=== PATIENT | male | born 1985 | race Caucasian/White ===

== ENCOUNTER 2022-06-06 18:30 | Observation (INO) | payer OTHER ==
[2022-06-06] MEDS ORDERED: Magnesium Replacement Protocol 1 EACH MISC MISCELLANE PRN (18:54)
[2022-06-06] MEDS ORDERED: INSULIN REGULAR BOLUS (FROM DRIP BAG) IV ONE (18:54)
[2022-06-06] MEDS ORDERED: SODIUM CHLORIDE 0.9% 1,000 ML IV ONE ×2 (18:54→21:02)
[2022-06-06] MEDS ORDERED: Potassium Replacement Protocol 1 EACH MISC MISCELLANE PRN (18:54)
[2022-06-06] MEDS ORDERED: LORazepam 2 MG/ML INJ IV STA (19:15)
[2022-06-06 19:28] LABS: Glucose,Whole Blood >600 mg/dL (70-110)
--- NOTE | 2022-06-06 19:31 | ED ---
General Adult HPI - General Chief complaint: Altered Mental Status Stated complaint: hyperglycemia Time Seen by Provider: 06/06/22 18:32 Source: patient, RN notes reviewed, old records reviewed Mode of arrival: EMS - History of Present Illness Initial comments: This is a 36-year-old male presents emergency department stating that his sugar is over 550. Patient states the type I insulin diabetic and he wants to get some insulin. Patient is very slow to answer questions. Sometimes when you ask him a question he just repeats his sugars high over and over again and doesn't a nswer questions. Patient seems somewhat agitated and when I asked him how he knew his sugar was high he told me not to make a mad and he clenched his fists. And eventually patient gets upset and wants to leave but spit and normal smile of tobacco into the urinal and then started crying and was wandering all over the ER stating that he wanted his water and he was holding his water in his hands. Patient is acting very bizarre and at this point in time I don't feel like he can make his own decisions. - Related Data Allergies Allergy/AdvReac Type Severity Reaction Status Date / Time No Known Allergies Allergy Verified 06/06/22 18:48 Review of Systems ROS Statement: Those systems with pertinent positive or pertinent negative responses have been documented in the HPI. ROS Other: All systems not noted in ROS Statement are negative. Past Medical History Past Medical History: Diabetes Mellitus History of Any Multi-Drug Resistant Organisms: None Reported Past Surgical History: No Surgical Hx Reported Past Psychological History: PTSD Smoking Status: Current some day smoker Past Alcohol Use History: Heavy Past Drug Use History: None Reported General Exam - General Exam Comments Initial Comments: GENERAL: Patient is well-developed and well-nourished. Patient is nontoxic and well- hydrated and is in no acute distress. ENT: Neck is soft and supple. No significant lymphadenopathy is noted. Oropharynx is clear. Moist mucous membranes. Neck has full range of motion without eliciting any pain. There is no thyroid enlargement and no masses were felt. EYES: The sclera were anicteric and conjunctiva were pink and moist. Extraocular movements were intact and pupils were equal round and reactive to light. Ey elids were unremarkable. PULMONARY: Unlabored respirations. Good breath sounds bilaterally. No audible rales rhonchi or wheezing was noted. CARDIOVASCULAR: There is a regular rate and rhythm without any murmurs gallops or rubs. Femoral pulses are equal bilaterally ABDOMEN: Soft and nontender with normal bowel sounds. No palpable organomegaly was noted. There is no palpable pulsatile mass. SKIN: Skin is clear with no lesions or rashes and otherwise unremarkable. NEUROLOGIC: Patient is alert and oriented 2. Cranial nerves II through XII are grossly intact. Motor and sensory are also intact. Normal speech, volume and content. Symmetrical smile. Cerebellar exam grossly intact. MUSCULOSKELETAL: Normal extremities with adequate strength and full range of motion. No lower extremity swelling or edema. No calf tenderness. LYMPHATICS: No significant lymphadenopathy is noted PSYCHIATRIC: Patient is acting very bizarre not answering all questions. Patient is getting agitated and clenching his fists patient is breaking out and crying because he can't find his water even though he is holding it. Patient is not competent to make his own decisions at this point. Course Vital Signs 06/06/22 06/06/22 18:41 20:56 Temperature 98.5 F 98.5 F Pulse Rate 111 H 97 Respiratory 20 20 Rate Blood Pressure 126/81 112/52 O2 Sat by Pulse 95 98 Oximetry Medical Decision Making - Medical Decision Making I filled out a clinical certain after the nurse petitioned for the patient to be held. EKG shows sinus tachycardia 108 bpm DC interval is 176 QRS is 190 QT interval 398 QTC is 462. Patient's EKG shows no ST segment elevation or depression. Patient was put on an insulin drip after he received an insulin bolus. Also he received a bolus of normal saline. Patient will be admitted I spoke with sounds physician's Dr. Sinclair he agreed to admit the patient I wrote admitting orders. - Lab Data Result diagrams: 06/06/22 19:06/06/22 19:23 Lab Results 06/06/22 06/06/22 06/06/22 Range/Units 19:23 19: 19: WBC 7.6 (3.8-10.6) k/uL RBC 4.93 (4.30-5.90) m/uL Hgb 14.7 (13.0-17.5) gm/dL Hct 44.3 (39.0-53.0) % MCV 90.0 (80.0-100.0) fL MCH 29.8 (25.0-35.0) pg MCHC 33.2 (31.0-37.0) g/dL RDW 11.9 (11.5-15.5) % Plt Count 302 (150-450) k/uL MPV 8.2 Neutrophils % 56 % Lymphocytes % 32 % Monocytes % 4 % Eosinophils % 5 % Basophils % 1 % Neutrophils # 4.3 (1.3-7.7) k/uL Lymphocytes # 2.4 (1.0-4.8) k/uL Monocytes # 0.3 (0-1.0) k/uL Eosinophils # 0.4 (0-0.7) k/uL Basophils # 0.1 (0-0.2) k/uL Sodium 134 L (137-145) mmol/L Potassium 5.7 H (3.5-5.1) mmol/L Chloride 95 L (98-107) mmol/L Carbon Dioxide 15 L (22-30) mmol/L Anion Gap 24 mmol/L BUN 11 (9-20) mg/dL Creatinine 0.84 (0.66-1.25) mg/dL Est GFR (CKD-EPI)AfAm >90 (>60 ml/min/1.73 sqM) Est GFR (CKD-EPI)NonAf >90 (>60 ml/min/1.73 sqM) Glucose 705 H* (74-99) mg/dL POC Glucose (mg/dL) (70-110) mg/dL POC Glu Dumpling Machine Operator ID Phosphorus 4.3 (2.5-4.5) mg/dL Acetone, Qual Negative (Negative) 06/06/22 Range/Units 19:26 WBC (3.8-10.6) k/uL RBC (4.30-5.90) m/uL Hgb (13.0-17.5) gm/dL Hct (39.0-53.0) % MCV (80.0-100.0) fL MCH (25.0-35.0) pg MCHC (31.0-37.0) g/dL RDW (11.5-15.5) % Plt Count (150-450) k/uL MPV Neutrophils % % Lymphocytes % % Monocytes % % Eosinophils % % Basophils % % Neutrophils # (1.3-7.7) k/uL Lymphocytes # (1.0-4.8) k/uL Monocytes # (0-1.0) k/uL Eosinophils # (0-0.7) k/uL Basophils # (0-0.2) k/uL Sodium (137-145) mmol/L Potassium (3.5-5.1) mmol/L Chloride (98-107) mmol/L Carbon Dioxide (22-30) mmol/L Anion Gap mmol/L BUN (9-20) mg/dL Creatinine (0.66-1.25) mg/dL Est GFR (CKD-EPI)AfAm (>60 ml/min/1.73 sqM) Est GFR (CKD-EPI)NonAf (>60 ml/min/1.73 sqM) Glucose (74-99) mg/dL POC Glucose (mg/dL) >600 H (70-110) mg/dL POC Glu Dumpling Machine Operator ID Yakov De Los Santos Phosphorus (2.5-4.5) mg/dL Acetone, Qual (Negative) Disposition Clinical Impression: Acute psychosis, Hyperglycemia Disposition: ADMITTED IP TO THIS HOSP Referrals: None,Stated [Primary Care Provider] - 1-2 days Time of Disposition: 21:01
[2022-06-06 19:35] LABS: Basophils # (A) 0.1 k/uL (0-0.2); Basophils % (A) 1 %; Eosinophils # (A) 0.4 k/uL (0-0.7); Eosinophils % (A) 5 %; HCT 44.3 % (39.0-53.0); HGB 14.7 gm/dL (13.0-17.5); Lymphocytes # (A) 2.4 k/uL (1.0-4.8); Lymphocytes % (A) 32 %; MCH 29.8 pg (25.0-35.0); MCHC 33.2 g/dL (31.0-37.0); Mean Platelet Volume 8.2; Monocytes # (A) 0.3 k/uL (0-1.0); Monocytes % (A) 4 %; Neutrophils # (A) 4.3 k/uL (1.3-7.7); Neutrophils % (A) 56 %; Platelet Count 302 k/uL (150-450); RBC 4.93 m/uL (4.30-5.90); RDW 11.9 % (11.5-15.5); WBC 7.6 k/uL (3.8-10.6)
[2022-06-06] MEDS: INSULIN REGULAR 100 UNIT in SODIUM CHLORIDE 0.9% 100 ML IV SCH (19:43)
[2022-06-06 19:55] LABS: African American GFR (CKD) >90 (>60 ml/min/1.73 sqM); Anion Gap 24 mmol/L; Blood Urea Nitrogen 11 mg/dL (9-20); Carbon Dioxide 15 mmol/L (22-30); Chloride 95 mmol/L (98-107); Non-African American GFR(CKD) >90 (>60 ml/min/1.73 sqM); Sodium 134 mmol/L (137-145)
[2022-06-06 20:05] LABS: Potassium 5.7 mmol/L (3.5-5.1)
[2022-06-06 20:06] LABS: Glucose 705 mg/dL (74-99)
[2022-06-06] MEDS ORDERED: ZIPRASIDONE 20 MG VIAL IM STA (20:07)
[2022-06-06] MEDS: SODIUM CHLORIDE 0.9% 1,000 ML IV SCH (22:05)
[2022-06-06 22:13] LABS: VBG PH 7.32 (7.31-7.41)
[2022-06-06 22:16] LABS: African American GFR (CKD) >90 (>60 ml/min/1.73 sqM); Anion Gap 18 mmol/L; Blood Urea Nitrogen 11 mg/dL (9-20); Carbon Dioxide 19 mmol/L (22-30); Chloride 102 mmol/L (98-107); Glucose 415 mg/dL (74-99); Non-African American GFR(CKD) >90 (>60 ml/min/1.73 sqM); Potassium 3.6 mmol/L (3.5-5.1); Sodium 139 mmol/L (137-145)
[2022-06-06 22:16] LABS: Glucose,Whole Blood 360 mg/dL (70-110)
[2022-06-06 23:27] LABS: Glucose,Whole Blood 175 mg/dL (70-110)
[2022-06-07 00:36] LABS: Glucose,Whole Blood 168 mg/dL (70-110)
[2022-06-07] MEDS: SODIUM CHLORIDE 0.9% 1,000 ML IV SCH (00:51)
[2022-06-07 01:09] LABS: African American GFR (CKD) >90 (>60 ml/min/1.73 sqM); Anion Gap 17 mmol/L; Blood Urea Nitrogen 11 mg/dL (9-20); Carbon Dioxide 20 mmol/L (22-30); Chloride 105 mmol/L (98-107); Glucose 157 mg/dL (74-99); Non-African American GFR(CKD) >90 (>60 ml/min/1.73 sqM); Potassium 3.6 mmol/L (3.5-5.1); Sodium 142 mmol/L (137-145)
[2022-06-07] MEDS: D5-0.45% NACL WITH KCL 20MEQ/L 1,000 ML IV SCH ×2 (01:32→08:40)
[2022-06-07 01:35] LABS: Glucose,Whole Blood 167 mg/dL (70-110)
[2022-06-07 02:36] LABS: Glucose,Whole Blood 207 mg/dL (70-110)
--- NOTE | 2022-06-07 02:56 | P.HPIM ---
History of Present Illness H&P Date: 06/06/22 Chief Complaint: bizarre behavior 36 year old male with history of DM . I was warned that patient is edgy, earlier int ED , he came in requesting some insulin as his sugar in high, and then he started acting in a bizarre way , violent and threatening, for which he was petitioned and given geodon to help control his behavior. at the time of my evaluation, he was very kind and understanding. he told me that [place] from [place] and [place]. he was given his medications by the guards when needed. however, today [place], and he was not given any of his insulin , all he had is his glucometer. and thats how he knew that his sugar was high. he was planning to walk all the way to [place] to his family as he does not have any money , but wan igor to correct his blood sugar first. he denies feeling sick , having any fever or chills, denies any abd pain , chest pain or trouble breathing. denies any URI symptoms. he currently feeling fine, and is eager to leave. I explained to him that even if his blood sugar is close to normal now, we still need to correct his acid base balance and electrolytes , and that we need at least till morning. he was understanding and willing to stay. I also offered him to speak with our social worker psychiatric to may be figure out a good discharge plan, and he sounded excited about this. Review of Systems Pertinent positives as noted in HPI. All other systems were reviewed and are negative Past Medical History Past Medical History: Diabetes Mellitus History of Any Multi-Drug Resistant Organisms: None Reported Past Surgical History: No Surgical Hx Reported Past Psychological History: PTSD Smoking Status: Current some day smoker Past Alcohol Use History: Heavy Past Drug Use History: None Reported - Past Family History family Additional Family Medical History / Comment(s): denies CAD or DM Medications and Allergies Home Medications Medication Instructions Recorded Confirmed Type Hyoscine Butylbromide 10mg Tab 10 mg PO TID PRN 06/06/22 06/06/22 History Insulin Lispro [humaLOG Kwikpen] 1 dose SQ DIRECTED 06/06/22 06/06/22 History Allergies Allergy/AdvReac Type Severity Reaction Status Date / Time No Known Allergies Allergy Verified 06/06/22 18:48 Physical Exam Vitals: Vital Signs Temp Pulse Resp BP Pulse Ox 06/06/22 20:56 98.5 F 97 20 112/52 98 06/06/22 18:41 98.5 F 111 H 20 126/81 95 Intake and Output 06/06/22 06/06/22 06/06/22 06:59 14:59 22:59 Other: Weight 102.058 kg Constitutional: No acute distress, cooperative , calm Eyes: Anicteric sclerae, moist conjunctiva, Pupils equal round reactive to light ENMT: NC/AT Oropharynx clear, no erythema, or exudates Neck: Supple, no masses, or JVD No carotid bruits No thyromegaly Lungs: Clear to auscultation Clear to percussion Normal respiratory effort, no accessory muscle use Cardiovascular: Heart regular in rate and rhythm, No murmurs, gallops, or rubs No peripheral edema Abdominal: Soft Nontender, no guarding, rebound or rigidity Abdomen moving with respiration Normoactive bowel sounds No hepatomegaly, No splenomegaly No palpable mass No abdominal wall hernia noted Skin: Normal temperature, tone, texture, turgor No induration No subcutaneous nodules No rash, lesions No ulcers Extremities: No digital cyanosis No clubbing Pedal pulses intact and symmetrical Radial pulses intact and symmetrical No calf tenderness Psychiatric: Alert and oriented to person, place Neuro Muscles Strength 5/5 in all 4 extremities Sensation to light touch grossly present throughout Cranial nerves II-XII grossly intact No focal sensory deficits Lymphatics: no palpable cervical or supraclavicular lymph nodes Results CBC & Chem 7: 06/06/22 19:23 06/07/22 00:06 Labs: Abnormal Lab Results - Last 24 Hours (Table) 06/06/22 06/06/22 Range/Units 19:23 19:26 Sodium 134 L (137-145) mmol/L Potassium 5.7 H (3.5-5.1) mmol/L Chloride 95 L (98-107) mmol/L Carbon Dioxide 15 L (22-30) mmol/L Glucose 705 H* (74-99) mg/dL POC Glucose (mg/dL) >600 H (70-110) mg/dL Assessment and Plan Assessment: hyperosmolar hyperglycemia agitated and bizarre behavior plan patient was petitioned and given GEODON in the ED for aggressive behavior toward staff continue with insulin drip until anion gap and bicarb corrects electrolytes q4 hrs blood sugar q1hr switch fluids to D5 0.45 with KCL 20. for blood sugar <300 continue NPO social worker psychiatric consult for discharge planning psych eval for aggressive bizarre behavior check UA and urine drug screen DVT PPX lovenox full code
[2022-06-07 03:34] LABS: Appearance,Urine Clear (Clear); Bilirubin,Urine Negative (Negative); Blood,Urine Negative (Negative); Color,Urine Light Yellow; Glucose,Urine (UA) 4+ (Negative); Ketones,Urine Negative (Negative); Leukocyte Esterase,Urine Negative (Negative); Nitrite,Urine Negative (Negative); PH, Urine 5.5 (5.0-8.0); Protein,Urine Negative (Negative); Specific Gravity,Urine 1.011 (1.001-1.035); Urobilinogen,Urine <2.0 mg/dL (<2.0)
[2022-06-07 03:34] LABS: Glucose,Whole Blood 202 mg/dL (70-110)
[2022-06-07] MEDS: INSULIN REGULAR 100 UNIT in SODIUM CHLORIDE 0.9% 100 ML IV SCH (03:58)
[2022-06-07 04:25] LABS: Glucose,Whole Blood 175 mg/dL (70-110)
[2022-06-07] MEDS ORDERED: LORazepam 1 MG/0.5 ML VIAL IV PRN (05:04)
[2022-06-07] MEDS ORDERED: HALOPERIDOL LACTATE 5 MG/ML 1 ML VIAL IM PRN (05:04)
[2022-06-07 05:27] LABS: Glucose,Whole Blood 171 mg/dL (70-110)
[2022-06-07 06:30] LABS: Glucose,Whole Blood 180 mg/dL (70-110)
[2022-06-07 06:50] LABS: African American GFR (CKD) >90 (>60 ml/min/1.73 sqM); Anion Gap 10 mmol/L; Blood Urea Nitrogen 12 mg/dL (9-20); Carbon Dioxide 25 mmol/L (22-30); Chloride 103 mmol/L (98-107); Glucose 159 mg/dL (74-99); Non-African American GFR(CKD) >90 (>60 ml/min/1.73 sqM); Potassium 4.1 mmol/L (3.5-5.1); Sodium 138 mmol/L (137-145)
[2022-06-07 07:36] LABS: Glucose,Whole Blood 123 mg/dL (70-110)
[2022-06-07] MEDS ORDERED: HEPARIN SODIUM,PORCINE/PF 5,000 UNIT/0.5 ML SYRINGE SQ SCH (08:00)
[2022-06-07 08:33] LABS: Glucose,Whole Blood 189 mg/dL (70-110)
[2022-06-07 09:56] LABS: Glucose,Whole Blood 169 mg/dL (70-110)
[2022-06-07 10:10] LABS: Glucose,Whole Blood 164 mg/dL (70-110)
[2022-06-07 10:31] LABS: Glucose,Whole Blood 222 mg/dL (70-110)
[2022-06-07 11:54] LABS: Glucose,Whole Blood 242 mg/dL (70-110)
[2022-06-07 12:10] LABS: Urine Alcohol Positive (Negative); Urine Barbiturate Negative (Negative); Urine Cocaine Negative (Negative); Urine Methadone Negative (Negative); Urine Opiates Negative (Negative); Urine Phencyclidine Negative (Negative)
[2022-06-07 12:11] LABS: African American GFR (CKD) >90 (>60 ml/min/1.73 sqM); Anion Gap 10 mmol/L; Blood Urea Nitrogen 12 mg/dL (9-20); Carbon Dioxide 26 mmol/L (22-30); Chloride 102 mmol/L (98-107); Glucose 282 mg/dL (74-99); Non-African American GFR(CKD) >90 (>60 ml/min/1.73 sqM); Potassium 4.7 mmol/L (3.5-5.1); Sodium 138 mmol/L (137-145)
[2022-06-07 12:22] VITALS: BP 128/79; PULSE 88; RESP 18; TEMP 99
[2022-06-07 12:50] LABS: Glucose,Whole Blood 285 mg/dL (70-110)
[2022-06-07 13:43] LABS: Glucose,Whole Blood 270 mg/dL (70-110)
--- NOTE | 2022-06-07 13:56 | P.CN ---
Psychiatric Consult - . Consult date: 06/07/22 Consult:: 06/07/22 13:55 IDENTIFYING DATA: This patient is a 36-year-old male with significant history of diabetes presented to the hospital for acute agitation and hyperglycemia. HISTORY OF PRESENT ILLNESS: The patient presented to the hospital on 06/06/2022, brought into the hospital by EMS for hyperglycemia. The patient was noted to be very agitated in the emergency department acting very bizarrely. He was also unable to provide any clear history and was very labile. He was admitted medically for management of his acute hyperglycemia and psychiatry is consulted for evaluation of acute psychotic behavior. Upon assessment on the medical floor, the patient is currently alert and oriented in all spheres. He is vehemently denying any suicidal or homicidal ideation, intention, and/or plan. He is able to recall the events leading up to the hospitalization. He was most recently in [place], having snuck into [facility] by hopping onto a train. The patient reports that he went into [place] because he wanted to "drink [place] beer." The patient's original home base is [place], [place]. The patient is vehemently denying any significant symptoms of schizophrenia or bipolar disorder. He reports no periods of excessive energy, grandiosity, impulsivity, or increased goal-directed activity. He denies any auditory or visual hallucinations. He reports no paranoia or other delusions. The patient states that he was found by police and determined that he did not have any record in [place] and due to trespassing [place] the border, he was incarcerated for [address] [facility]. He was then bipolar police to the border where he was released back into the [facility]. He reports that he was unable to have his insulin with him as that was lost in the transfer between [place] in the . PAST PSYCHIATRIC HISTORY: Patient has a remote history of depression. He recalls being prescribed Zoloft in the very distant past. Patient denies any previous psychiatric hospitalizations. Patient denies any psychiatric outpatient follow-up. Patient denies any history of suicide attempts in the past. PAST MEDICAL HISTORY: Past Medical History: Diabetes Mellitus History of Any Multi-Drug Resistant Organisms: None Reported Past Surgical History: No Surgical Hx Reported Past Psychological History: PTSD Smoking Status: Current some day smoker Past Alcohol Use History: Heavy Past Drug Use History: None Reported ALLERGIES: NO KNOWN DRUG ALLERGIES CHEMICAL DEPENDENCY HISTORY: The patient reports occasional alcohol use, occasional marijuana use, and Vape use daily. He denies any illicit drug use. FAMILY PSYCHIATRIC/SUBSTANCE USE HISTORY: He reports no significant family psychiatric history. 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 This is the patient's lifestyle and he travels from place to place by jumping onto trains. He understands the risks that this entails. MENTAL STATUS EXAM: General Appearance: Patient appears to be stated age is alert, pleasant, and cooperative. Patient appears to have fair hygiene and grooming wearing hospital gown with fair eye contact. Behavior: Patient is calmly lying in bed without any agitated behavior. Speech: Patient's speech is fluent and nonpressured. Mood/Affect: Patient reports their mood is "doing fine", affect is congruent and euthymic Suicidality/Homicidality: Patient denies having any suicidal or homicidal ideation intent or plan. Perceptions: Patient denies any visual hallucinations and denies any auditory hallucinations Though content/process: There is no evidence of any delusional thought content and thought process is linear and goal-directed. Memory and concentration: AOX3, grossly intact for the purposes of this session. Can spell "WORLD" backwards Judgment and insight: Excellent Vital Signs Temp 99.0 F 06/07/22 12:21 Pulse 88 06/07/22 12:21 Resp 18 06/07/22 12:21 BP 128/79 06/07/22 12:21 Pulse Ox 95 06/07/22 12:21 FiO2 Intake & Output 06/06/22 06/07/22 06/07/22 18:59 06:59 18:59 Intake Total 68.230 26.217 Balance 68.230 26.217 Weight 102.058 kg 102.058 kg Intake: Intake, IV Titration 68.230 26.217 Amount Insulin Regular 100 unit 68.230 26.217 In Sodium Chloride 0.9% 100 ml @ 0.1 UNITS/KG/HR 10.308 mls/hr IV .Q9H48M ALYSE Rx#:[id number] Other: # Voids 3 Laboratory Results WBC 7.6 k/uL (3.8-10.6) 06/06/22 19:23 RBC 4.93 m/uL (4.30-5.90) 06/06/22 19:23 Hgb 14.7 gm/dL (13.0-17.5) 06/06/22 19: Hct 44.3 % (39.0-53.0) 06/06/22 19: MCV 90.0 fL (80.0-100.0) 06/06/22 19: MCH 29.8 pg (25.0-35.0) 06/06/22 19: MCHC 33.2 g/dL (31.0-37.0) 06/06/22 19: RDW 11.9 % (11.5-15.5) 06/06/22 19: Plt Count 302 k/uL (150-450) 06/06/22 19: MPV 8.2 06/06/22 19: Neutrophils % 56 % 06/06/22 19: Lymphocytes % 32 % 06/06/22 19: Monocytes % 4 % 06/06/22 19: Eosinophils % 5 % 06/06/22 19: Basophils % 1 % 06/06/22 19: Neutrophils # 4.3 k/uL (1.3-7.7) 06/06/22 19: Lymphocytes # 2.4 k/uL (1.0-4.8) 06/06/22 19: Monocytes # 0.3 k/uL (0-1.0) 06/06/22 19: Eosinophils # 0.4 k/uL (0-0.7) 06/06/22 19: Basophils # 0.1 k/uL (0-0.2) 06/06/22 19:23 VBG pH 7.32 (7.31-7.41) 06/06/22 21:37 VBG pCO2 41 mmHg (37-51) 06/06/22 21:37 VBG HCO3 20 mmol/L (24-28) L 06/06/22 21:37 Sodium 138 mmol/L (137-145) 06/07/22 11:13 Potassium 4.7 mmol/L (3.5-5.1) 06/07/22 11:13 Chloride 102 mmol/L (98-107) 06/07/22 11:13 Carbon Dioxide 26 mmol/L (22-30) 06/07/22 11:13 Anion Gap 10 mmol/L 06/07/22 11:13 BUN 12 mg/dL (9-20) 06/07/22 11:13 Creatinine 0.66 mg/dL (0.66-1.25) 06/07/22 11:13 Est GFR (CKD-EPI)AfAm >90 (>60 ml/min/1.73 sqM) 06/07/22 11:13 Est GFR (CKD-EPI)NonAf >90 (>60 ml/min/1.73 sqM) 06/07/22 11:13 Glucose 282 mg/dL (74-99) H 06/07/22 11:13 POC Glucose (mg/dL) 270 mg/dL (70-110) H 06/07/22 13:41 POC Glu Home Visitor ID Trinh Robertson 06/07/22 13:41 Phosphorus 3.0 mg/dL (2.5-4.5) 06/07/22 00:06 Urine Color Light Yellow 06/07/22 01:38 Urine Appearance Clear (Clear) 06/07/22 01:38 Urine pH 5.5 (5.0-8.0) 06/07/22 01:38 Ur Specific [place] 1.011 (1.001-1.035) 06/07/22 01:38 Urine Protein Negative (Negative) 06/07/22 01:38 Urine Glucose (UA) 4+ (Negative) H 06/07/22 01:38 Urine Ketones Negative (Negative) 06/07/22 01:38 Urine Blood Negative (Negative) 06/07/22 01:38 Urine Nitrite Negative (Negative) 06/07/22 01:38 Urine Bilirubin Negative (Negative) 06/07/22 01:38 Urine Urobilinogen <2.0 mg/dL (<2.0) 06/07/22 01:38 Ur Leukocyte Esterase Negative (Negative) 06/07/22 01:38 Urine Opiates Screen Negative (Negative) 06/07/22 01:38 Urine Methadone Screen Negative (Negative) 06/07/22 01:38 Ur Propoxyphene Screen Negative (Negative) 06/07/22 01:38 Urine Barbiturates Negative (Negative) 06/07/22 01:38 Ur Phencyclidine Scrn Negative (Negative) 06/07/22 01:38 Ur Amphetamine Screen Negative (Negative) 06/07/22 01:38 U Benzodiazepines Scrn Negative (Negative) 06/07/22 01:38 Urine Cocaine Screen Negative (Negative) 06/07/22 01:38 U Cannabinoids Screen Negative (Negative) 06/07/22 01:38 Urine Alcohol Positive (Negative) A 06/07/22 01:38 Serum Alcohol 155 mg/dL 06/06/22 21:37 Acetone, Qual Negative (Negative) 06/06/22 19:23 Allergies Allergy/AdvReac Type Severity Reaction Status Date / Time No Known Allergies Allergy Verified 06/06/22 18:48 IMPRESSIONS: Altered mental status, likely secondary to ischemia, resolved Hyperglycemia, resolved PLAN: -At this time patient DOES NOT meet criteria for inpatient psychiatric admission. -Would recommend the following medication changes/additions: Medication recommendations are made at this time. -Discontinue one-to-one sitter -Psychiatry will sign off at this point, please contact with any questions. 06/07/22 13:56
--- NOTE | 2022-06-07 15:21 | P.DS ---
Providers Date of admission: 06/06/22 21:03 Expected date of discharge: 06/07/22 Attending physician: Jose Sinclair MD Consults: 06/06/22 21:05 Consult Physician Urgent Consulting Provider: Bi Brumfield Consult Reason/Comments: Acute psychosis Do you want consulting provider notified?: Yes Primary care physician: Stated None Hospital Course: Severe Hyperglycemia Altered Mental Status 36-year-old man with type 2 diabetes presented with severe hyperglycemia as well as agitated and bizarre behavior. Patient was petitioned by ED staff for treatment while in the hospital, and was subsequently cleared by psychiatry the following day. In the interim, patient was treated with an insulin drip and sugars improved to the 120s. Patient reported that he was very poor and cannot afford his insulin, and social work was using [employer] funds to help the patient get his dose of insulin that was needed. Unfortunately, the patient became impatient and left the hospital prior to receiving his insulin, AGAINST MEDICAL ADVICE. Gen: awake, alert HEENT: normocephalic, atraumatic, good hearing acuity, moist mucous membranes Resp: good air exchange, breathing comfortably with no accessory muscle use CVS: good distal perfusion x 4, GI: soft, NTTP, ND : no SPT, no CVAT, guzman catheter not present MSK: no pitting edema, no clubbing Neuro: non-focal, moving all extremities Psych: cooperative, euthymic mood Patient Condition at Discharge: Good Plan - Discharge Summary New Discharge Prescriptions: New Insulin NPH/Reg Insulin 70/30 [humuLIN 70/30 VIAL] 15 unit SQ BID #3 ml Continue Hyoscine Butylbromide 10mg Tab 10 mg PO TID PRN PRN Reason: ABDOM ISSUES/MOTION SICKNESS Discontinued Insulin Lispro [humaLOG Kwikpen] 1 dose SQ DIRECTED Discharge Medication List Hyoscine Butylbromide 10mg Tab 10 mg PO TID PRN 06/06/22 [History] Insulin NPH/Reg Insulin 70/30 [humuLIN 70/30 VIAL] 15 unit SQ BID #3 ml 06/07/22 [Rx] Follow up Appointment(s)/Referral(s): None,Stated [Primary Care Provider] - 1-2 days Activity/Diet/Wound Care/Special Instructions: Free Glucometer and low cost supplies at [facility] [id number], [place] [address] Discharge/Stand Alone Forms: AA Meetings [place], Community Resources, Personal Bank Officer Discharge Disposition: Left Against Medical Advice
== END 2022-06-07 14:49 | disposition left against medical advice (07) ==
LOC: EC 18:30 → 3SCARD 21:03
PROVIDERS: ADMIT Internal Medicine; ATTEND Internal Medicine
DX: E11.65 Type 2 diabetes mellitus with hyperglycemia (principal); R41.82 Altered mental status, unspecified; F43.10 Post-traumatic stress disorder, unspecified; R00.0 Tachycardia, unspecified; F17.290 Nicotine dependence, other tobacco product, uncomplicated; F12.90 Cannabis use, unspecified, uncomplicated; Z79.4 Long term (current) use of insulin; Z79.899 Other long term (current) drug therapy; Z53.29 Procedure and treatment not carried out because of patient's decision for other reasons
CPT/HCPCS: 96372; 96374; 99285; 36415; 93005; 80051 ×2; 82565 ×2; 82803; 82009; 84100 ×2; 82947 ×2; 84520 ×2; 85025; 81003; 80306; 80320; G0378 ×2; J2060; J3486

== ENCOUNTER 2022-06-11 22:06 | Emergency (ER) | payer SELFPAY ==
--- NOTE | 2022-06-11 22:14 | ED ---
Psych HPI - General Source: RN notes reviewed, old records reviewed Limitations: no limitations - History of Present Illness MD Complaint: altered mental status -: unknown Associated Psychiatric Symptoms: racing thoughts History of same: Yes Quality: getting worse Improves With: none Worsens With: none Context: recent alcohol abuse Associated Symptoms: denies other symptoms Treatments Prior to Arrival: placed on mental health hold <Emilio Wynn - Last Filed: 06/12/22 00:23> <Humza Turk - Last Filed: 06/12/22 12:17> - General Stated Complaint: mental health Time Seen by Provider: 06/11/22 22:12 - History of Present Illness Initial Comments: This is a 28-year-old male brought in for psychiatric evaluation. Patient is unable to provide history secondary to psychotic state and his need to be sedated because he is being combative (Emilio Wynn) - Related Data Home Medications Medication Instructions Recorded Confirmed Hyoscine Butylbromide 10mg Tab 10 mg PO TID PRN 06/06/22 06/06/22 Previous Rx's Medication Instructions Recorded Insulin NPH/Reg Insulin 70/30 15 unit SQ BID #3 ml 06/12/22 [humuLIN 70/30 VIAL] Allergies Allergy/AdvReac Type Severity Reaction Status Date / Time No Known Allergies Allergy Verified 06/06/22 18:48 Review of Systems ROS Other: All systems not noted in ROS Statement are negative. <Emilio Wynn - Last Filed: 06/12/22 00:23> ROS Other: All systems not noted in ROS Statement are negative. <Humza Turk - Last Filed: 06/12/22 12:17> ROS Statement: Those systems with pertinent positive or pertinent negative responses have been documented in the HPI. Past Medical History Past Medical History: Diabetes Mellitus History of Any Multi-Drug Resistant Organisms: None Reported Past Surgical History: No Surgical Hx Reported Past Psychological History: PTSD Smoking Status: Current some day smoker Past Alcohol Use History: Heavy Past Drug Use History: None Reported - Past Family History family Additional Family Medical History / Comment(s): denies CAD or DM <Emilio Wynn - Last Filed: 06/12/22 00:23> General Exam General appearance: alert, in no apparent distress Head exam: Present: atraumatic, normocephalic, normal inspection Eye exam: Present: normal appearance, PERRL, EOMI. Absent: scleral icterus, conjunctival injection, periorbital swelling ENT exam: Present: normal exam, mucous membranes moist Neck exam: Present: normal inspection. Absent: tenderness, meningismus, lymphadenopathy Respiratory exam: Present: normal lung sounds bilaterally. Absent: respiratory distress, wheezes, rales, rhonchi, stridor Cardiovascular Exam: Present: regular rate, normal rhythm, normal heart sounds. Absent: systolic murmur, diastolic murmur, rubs, gallop, clicks GI/Abdominal exam: Present: soft, normal bowel sounds. Absent: distended, tenderness, guarding, rebound, rigid Extremities exam: Present: normal inspection, full ROM, normal capillary refill. Absent: tenderness, pedal edema, joint swelling, calf tenderness Back exam: Present: normal inspection Neurological exam: Present: alert, oriented X3, CN II-XII intact Psychiatric exam: Present: normal affect, normal mood Skin exam: Present: warm, dry, intact, normal color. Absent: rash <Eimlio Wynn - Last Filed: 06/12/22 00:23> Course <Emilio Wynn - Last Filed: 06/12/22 00:23> Vital Signs 06/11/22 22:11 Temperature 98.0 F Pulse Rate 102 H Respiratory 20 Rate Blood Pressure 123/100 O2 Sat by Pulse 99 Oximetry - Reevaluation(s) Reevaluation #1: 06/12/22 00:23 Medical record is reviewed (Emilio Wynn) Reevaluation #2: 06/12/22 00:23 Patient's further story includes recent travel to [place] where he was incarcerated and they did bring him back across into [place] (Emilio Wynn) Medical Decision Making - Lab Data Result diagrams: 06/12/22 01:10 06/12/22 01:10 <Humza Turk - Last Filed: 06/12/22 12:17> - Medical Decision Making 36-year-old male who had presented for evaluation of mental illness. Patient apparently had been intoxicated and was making homicidal statements. He had been medically cleared by the previous physician and was awaiting EPS evaluation. He was evaluated by EPS and felt to be safe for discharge. No further suicidal or homicidal thoughts. (Humza Turk) - Lab Data Lab Results 06/11/22 06/12/22 06/12/22 Range/Units 22:19 01:10 01:10 WBC 4.3 (3.8-10.6) k/uL RBC 3.80 L (4.30-5.90) m/uL Hgb 12.1 L (13.0-17.5) gm/dL Hct 34.4 L (39.0-53.0) % MCV 90.4 (80.0-100.0) fL MCH 31.8 (25.0-35.0) pg MCHC 35.2 (31.0-37.0) g/dL RDW 12.3 (11.5-15.5) % Plt Count 228 (150-450) k/uL MPV 7.9 Neutrophils % 39 % Lymphocytes % 41 % Monocytes % 8 % Eosinophils % 9 % Basophils % 1 % Neutrophils # 1.7 (1.3-7.7) k/uL Lymphocytes # 1.7 (1.0-4.8) k/uL Monocytes # 0.3 (0-1.0) k/uL Eosinophils # 0.4 (0-0.7) k/uL Basophils # 0.0 (0-0.2) k/uL Sodium 140 (137-145) mmol/L Potassium 4.0 (3.5-5.1) mmol/L Chloride 103 (98-107) mmol/L Carbon Dioxide 22 (22-30) mmol/L Anion Gap 15 mmol/L BUN 9 (9-20) mg/dL Creatinine 0.51 L (0.66-1.25) mg/dL Est GFR (CKD-EPI)AfAm >90 (>60 ml/min/1.73 sqM) Est GFR (CKD-EPI)NonAf >90 (>60 ml/min/1.73 sqM) Glucose 412 H (74-99) mg/dL POC Glucose (mg/dL) 304 H (70-110) mg/dL POC Glu Pipe Wrapping Machine Operator ID Mina, Leticia Calcium 7.9 L (8.4-10.2) mg/dL Phosphorus 3.6 (2.5-4.5) mg/dL Magnesium 2.0 (1.6-2.3) mg/dL Total Bilirubin 0.2 (0.2-1.3) mg/dL AST 58 (17-59) U/L ALT 31 (4-49) U/L Alkaline Phosphatase 136 H (38-126) U/L Total Protein 5.7 L (6.3-8.2) g/dL Albumin 3.7 (3.5-5.0) g/dL Salicylates <1.0 mg/dL Acetaminophen <10.0 ug/mL Serum Alcohol 128 mg/dL 06/12/22 06/12/22 06/12/22 Range/Units 03:17 08:02 09:24 WBC (3.8-10.6) k/uL RBC (4.30-5.90) m/uL Hgb (13.0-17.5) gm/dL Hct (39.0-53.0) % MCV (80.0-100.0) fL MCH (25.0-35.0) pg MCHC (31.0-37.0) g/dL RDW (11.5-15.5) % Plt Count (150-450) k/uL MPV Neutrophils % % Lymphocytes % % Monocytes % % Eosinophils % % Basophils % % Neutrophils # (1.3-7.7) k/uL Lymphocytes # (1.0-4.8) k/uL Monocytes # (0-1.0) k/uL Eosinophils # (0-0.7) k/uL Basophils # (0-0.2) k/uL Sodium (137-145) mmol/L Potassium (3.5-5.1) mmol/L Chloride (98-107) mmol/L Carbon Dioxide (22-30) mmol/L Anion Gap mmol/L BUN (9-20) mg/dL Creatinine (0.66-1.25) mg/dL Est GFR (CKD-EPI)AfAm (>60 ml/min/1.73 sqM) Est GFR (CKD-EPI)NonAf (>60 ml/min/1.73 sqM) Glucose (74-99) mg/dL POC Glucose (mg/dL) 490 H 49 L 97 (70-110) mg/dL POC Glu Pipe Wrapping Machine Operator ID Stanislav Purdy, Shikha Min, Shikha Calcium (8.4-10.2) mg/dL Phosphorus (2.5-4.5) mg/dL Magnesium (1.6-2.3) mg/dL Total Bilirubin (0.2-1.3) mg/dL AST (17-59) U/L ALT (4-49) U/L Alkaline Phosphatase (38-126) U/L Total Protein (6.3-8.2) g/dL Albumin (3.5-5.0) g/dL Salicylates mg/dL Acetaminophen ug/mL Serum Alcohol mg/dL Disposition <Emilio Wynn - Last Filed: 06/12/22 00:23> Is patient prescribed a controlled substance at d/c from ED?: No Time of Disposition: 12:16 <Humza Turk - Last Filed: 06/12/22 12:17> Clinical Impression: Acute psychosis, Hyperglycemia Disposition: HOME SELF-CARE Condition: Fair Prescriptions: Insulin NPH/Reg Insulin 70/30 [humuLIN 70/30 VIAL] 15 unit SQ BID #3 ml Referrals: None,Stated [Primary Care Provider] - 1-2 days Ulisses Matias MD [REFERRING] - 1-2 days
[2022-06-11 22:15] VITALS: BP 123/100; PULSE 102; TEMP 98
[2022-06-11 22:21] LABS: Glucose,Whole Blood 304 mg/dL (70-110)
[2022-06-11] MEDS ORDERED: LORazepam 2 MG/ML INJ IV STA (22:21)
[2022-06-11] MEDS ORDERED: diphenhydrAMINE 50 MG/ML 1 ML VIAL IVP STA (22:21)
[2022-06-11] MEDS ORDERED: ZIPRASIDONE 20 MG VIAL IM STA (22:23)
[2022-06-11] MEDS ORDERED: HALOPERIDOL LACTATE 5 MG/ML 1 ML VIAL IM STA (22:33)
[2022-06-12] MEDS ORDERED: SODIUM CHLORIDE 0.9% 1,000 ML IV STA (00:24)
[2022-06-12 01:18] LABS: Basophils % (A) 1 %; Eosinophils # (A) 0.4 k/uL (0-0.7); Eosinophils % (A) 9 %; HCT 34.4 % (39.0-53.0); HGB 12.1 gm/dL (13.0-17.5); Lymphocytes # (A) 1.7 k/uL (1.0-4.8); Lymphocytes % (A) 41 %; MCH 31.8 pg (25.0-35.0); MCHC 35.2 g/dL (31.0-37.0); MCV 90.4 fL (80.0-100.0); Mean Platelet Volume 7.9; Monocytes # (A) 0.3 k/uL (0-1.0); Monocytes % (A) 8 %; Neutrophils # (A) 1.7 k/uL (1.3-7.7); Neutrophils % (A) 39 %; Platelet Count 228 k/uL (150-450); RDW 12.3 % (11.5-15.5); WBC 4.3 k/uL (3.8-10.6)
[2022-06-12 01:29] LABS: ALT 31 U/L (4-49); AST 58 U/L (17-59); Acetaminophen <10.0 ug/mL; African American GFR (CKD) >90 (>60 ml/min/1.73 sqM); Albumin 3.7 g/dL (3.5-5.0); Alkaline Phosphatase 136 U/L (38-126); Anion Gap 15 mmol/L; Blood Urea Nitrogen 9 mg/dL (9-20); Calcium 7.9 mg/dL (8.4-10.2); Carbon Dioxide 22 mmol/L (22-30); Chloride 103 mmol/L (98-107); Glucose 412 mg/dL (74-99); Non-African American GFR(CKD) >90 (>60 ml/min/1.73 sqM); Phosphorus 3.6 mg/dL (2.5-4.5); Salicylate <1.0 mg/dL; Sodium 140 mmol/L (137-145); Total Bilirubin 0.2 mg/dL (0.2-1.3); Total Protein 5.7 g/dL (6.3-8.2)
[2022-06-12 01:37] LABS: Alcohol 128 mg/dL
[2022-06-12 03:19] LABS: Glucose,Whole Blood 490 mg/dL (70-110)
[2022-06-12] MEDS ORDERED: INSULIN REGULAR 100 UNIT/ML VIAL (IV) IV STA (03:30)
[2022-06-12 08:06] LABS: Glucose,Whole Blood 49 mg/dL (70-110)
[2022-06-12 09:26] LABS: Glucose,Whole Blood 97 mg/dL (70-110)
[2022-06-12 14:28] VITALS: RESP 18
== END 2022-06-12 14:28 | disposition home or self-care (01) ==
LOC: EC 22:06
DX: E11.65 Type 2 diabetes mellitus with hyperglycemia (principal); F23 Brief psychotic disorder; F17.200 Nicotine dependence, unspecified, uncomplicated; Z79.4 Long term (current) use of insulin
CPT/HCPCS: 82075; 36415 ×2; 80053; 83735; 84100; 85025; 80143; 80320; 80179; 99285; 96374; 96375; 96361; 96372 ×2; J2060; J1200; J1630; J3486

== ENCOUNTER 2024-08-11 13:13 | Observation (INO) | payer OTHER ==
--- NOTE | 2024-08-11 13:16 | ED ---
Recheck HPI <Natasha Calvin - Last Filed: 08/15/24 09:11> - General Source: RN notes reviewed, old records reviewed Limitations: no limitations - History of Present Illness MD Complaint: abnormal lab (Blood sugar weakness dizziness) -: days(s) Returns Today for: Called Because of Abnormal Lab/Test Symptoms Since Prior Visit: no new symptoms Context: called for abnormal lab result Associated Symptoms: none Treatments Prior to Arrival: other (0) <Emilio Wynn - Last Filed: 08/17/24 15:56> - General Stated Complaint: diabetic issue - History of Present Illness Initial Comments: 39-year-old male with a history of diabetes who presents to the emergency department for high blood sugar. EMS states that the patient's blood sugar is in the 400s. He is a diabetic who takes insulin. (Natasha Calvin) 39-year-old male to the ER for elevated blood sugar today. Patient presents with elevated blood sugar and noncompliance as he is unable to get medications currently (Emilio Wynn) - Related Data Previous Rx's Medication Instructions Recorded Acetaminophen Tab [Tylenol] 650 mg PO Q6HR PRN tab 08/13/24 INSULIN ASPART (NovoLOG) [NovoLOG 0 unit SQ AC-TID 30 Days #10 ml 08/13/24 (formulary)] Ibuprofen [Motrin] 400 mg PO Q8HR PRN 2 Days tab 08/13/24 Insuln Asp Prt/Insulin Aspart 10 unit SQ AC-SUPPER 30 Days #10 ml 08/13/24 [NovoLOG MIX 70-30 VIAL] Insuln Asp Prt/Insulin Aspart 20 unit SQ AC-BRKFST 30 Days #10 ml 08/13/24 [NovoLOG MIX 70-30 VIAL] Allergies Allergy/AdvReac Type Severity Reaction Status Date / Time No Known Allergies Allergy Verified 08/11/24 20:43 Review of Systems ROS Other: All systems not noted in ROS Statement are negative. <Natasha Calvin - Last Filed: 08/15/24 09:11> ROS Other: All systems not noted in ROS Statement are negative. <Emilio Wynn - Last Filed: 08/17/24 15:56> ROS Statement: Those systems with pertinent positive or pertinent negative responses have been documented in the HPI. Past Medical History Past Medical History: Diabetes Mellitus History of Any Multi-Drug Resistant Organisms: None Reported Past Surgical History: No Surgical Hx Reported Past Psychological History: PTSD Smoking Status: Current some day smoker Past Alcohol Use History: Heavy Past Drug Use History: None Reported - Past Family History family Additional Family Medical History / Comment(s): denies CAD or DM <Natasha Calvin - Last Filed: 08/15/24 09:11> General Exam <Natasha Calvin - Last Filed: 08/15/24 09:11> General appearance: alert, in no apparent distress Head exam: Present: atraumatic, normocephalic, normal inspection Eye exam: Present: normal appearance, PERRL, EOMI. Absent: scleral icterus, conjunctival injection, periorbital swelling ENT exam: Present: normal exam, mucous membranes moist Neck exam: Present: normal inspection. Absent: tenderness, meningismus, lymphadenopathy Respiratory exam: Present: normal lung sounds bilaterally. Absent: respiratory distress, wheezes, rales, rhonchi, stridor Cardiovascular Exam: Present: regular rate, normal rhythm, normal heart sounds. Absent: systolic murmur, diastolic murmur, rubs, gallop, clicks GI/Abdominal exam: Present: soft, normal bowel sounds. Absent: distended, tenderness, guarding, rebound, rigid Extremities exam: Present: normal inspection, full ROM, normal capillary refill. Absent: tenderness, pedal edema, joint swelling, calf tenderness Back exam: Present: normal inspection Neurological exam: Present: alert, oriented X3, CN II-XII intact Psychiatric exam: Present: normal affect, normal mood Skin exam: Present: warm, dry, intact, normal color. Absent: rash <Emilio Wynn - Last Filed: 08/17/24 15:56> - General Exam Comments Initial Comments: GENERAL Patient is well-developed and well-nourished. Patient is in mild distress. EYES Patient's pupils are equal and round. Extraocular motion is intact SKIN Unremarkable NEURO The patient is alert and oriented 3 PYSCH Patient has a flat affect (Natasha Calvin) Course <Emilio Wynn - Last Filed: 08/17/24 15:56> Vital Signs 08/11/24 08/12/24 08/12/24 13:24 03:42 06:21 Temperature 97.7 F 98.9 F Pulse Rate 107 H 104 H 93 Respiratory 20 16 18 Rate Blood Pressure 130/77 124/72 125/79 O2 Sat by Pulse 99 95 99 Oximetry - Reevaluation(s) Reevaluation #1: 08/11/24 16:31 Medical records reviewed (Emilio Wynn) Reevaluation #2: 08/11/24 16:31 Patient symptoms unchanged (Emilio Wynn) Reevaluation #3: 08/11/24 16:31 Patient informed of results questions answered (Emilio Wynn) Reevaluation #4: Was pt. sent in by a medical professional or institution ([facility], PACK PRESS OPERATOR, urgent care, hospital, or assisted...) When possible be specific @ -no Did you speak to anyone other than the patient for history (EMS, parent, family, police, friend...)? What history was obtained from this source @ -no Did you review nursing and triage notes (agree or disagree)? Why? @ -agree Are old charts reviewed (outside hosp., previous admission, EMS record, old EKG, old radiological studies, urgent care reports/EKG's, assisted records)? Rep ort findings @ -yes Differential Diagnosis (chest pain, altered mental status, abdominal pain women, abdominal pain men, vaginal bleeding, weakness, fever, dyspnea, syncope, headache, dizziness, GI bleed, back pain, seizure, CVA, palpatations, mental health, musculoskeletal)? @ -prior EKG interpreted by me (3pts min.). @ -yes X-rays interpreted by me (1pt min.). @ -yes negative for acute disease CT interpreted by me (1pt min.). @ -no U/S interpreted by me (1pt. min.). @ -no What testing was considered but not performed or refused? (CT, X-rays, U/S, labs)? Why? @ -none What meds were considered but not given or refused? Why? @ -none Did you discuss the management of the patient with other professionals (professionals i.e. [facility], PACK PRESS OPERATOR, lab, RT, psych nurse, licensed social worker, school inspector, t eacher, accounts officer, case checker)? Give summary @ -no Was smoking cessation discussed for >3mins.? @ -no Was critical care preformed (if so, how long)? @ -no Were there social determinants of health that impacted care today? How? (Homelessness, low income, unemployed, alcoholism, drug addiction, transportation, low edu. Level, literacy, decrease access to med. care, halfway, rehab)? @ -none Was there de-escalation of care discussed even if they declined (Discuss DNR or withdrawal of care, Hospice)? DNR status @ -no What co-morbidities impacted this encounter? (DM, HTN, Smoking, COPD, CAD, Cancer, CVA, ARF, Chemo, Hep., AIDS, mental health diagnosis, sleep apnea, morbid obesity)? @ -none Was patient admitted / discharged? Hospital course, mention meds given and route, prescriptions, significant lab abnormalities, going to OR and other pertinent info. @ - 39 Male to be admitted for alcohol intoxication, hyperglycemia uncontrolled blood sugar and medical noncompliance Admitted Undiagnosed new problem with uncertain prognosis? @ -no Drug Therapy requiring intensive monitoring for toxicity (Heparin, Nitro, Insulin, Cardizem)? @ -no Were any procedures done? @ -no Diagnosis/symptom? @ -Uncontrolled hyperglycemia Acute, or Chronic, or Acute on Chronic? @ -Acute Uncomplicated (without systemic symptoms) or Complicated (systemic symptoms)? @ -Complicated Side effects of treatment? @ -no Exacerbation, Progression, or Severe Exacerbation? @ -exacerbation Poses a threat to life or bodily function? How? (Chest pain, USA, MA, pneumonia, PE, COPD, DKA, ARF, appy, cholecystitis, CVA, Diverticulitis, Homicidal, Suicidal, threat to staff... and all critical care pts) @ -yes hypoglycemia (Emilio Wynn) Reevaluation #5: Differential Weakness: Hypoglycemia, shock, sepsis, hyponatremia, anemia, infection, MA, ETOH, adverse medicine reaction, overdose, stroke, this is not meant to be an all-inclusive list. (Emilio Wynn) - Consultations Consultation #1: Spoke with [facility] who agrees to admit this patient (Emilio Wynn) Medical Decision Making - Lab Data Result diagrams: 08/12/24 06:27 08/12/24 06:27 <Natasha Calvin - Last Filed: 08/15/24 09:11> - Lab Data Result diagrams: 08/12/24 06:27 08/12/24 06:27 - EKG Data -: EKG Interpreted by Me (EKG sinus 107 MN 202 QRS 105 QTc 391) - Radiology Data Radiology results: report reviewed (CHest and x-ray lumbar spine negative for acute disease), image reviewed <Emilio Wynn - Last Filed: 08/17/24 15:56> - Medical Decision Making I completed a quick note on this patient (Natasha Calvin) 39 Male to be admitted for alcohol intoxication, hyperglycemia uncontrolled blood sugar and medical noncompliance (Emilio Wynn) - Lab Data Lab Results 08/11/24 08/11/24 08/11/24 Range/Units 13:25 15:11 15:11 WBC 9.3 (3.8-10.6) k/uL RBC 4.63 (4.30-5.90) m/uL Hgb 13.5 (13.0-17.5) gm/dL Hct 40.7 (39.0-53.0) % MCV 87.8 (80.0-100.0) fL MCH 29.2 (25.0-35.0) pg MCHC 33.3 (31.0-37.0) g/dL RDW 13.1 (11.5-15.5) % Plt Count 260 (150-450) k/uL MPV 6.9 Neutrophils % 71 % Lymphocytes % 23 % Monocytes % 4 % Eosinophils % 1 % Basophils % 0 % Neutrophils # 6.6 (1.3-7.7) k/uL Lymphocytes # 2.1 (1.0-4.8) k/uL Monocytes # 0.4 (0-1.0) k/uL Eosinophils # 0.1 (0-0.7) k/uL Basophils # 0.0 (0-0.2) k/uL VBG pH (7.31-7.41) VBG pCO2 (37-51) mmHg VBG HCO3 (24-28) mmol/L Sodium 139 (137-145) mmol/L Potassium 4.8 (3.5-5.1) mmol/L Chloride 103 (98-107) mmol/L Carbon Dioxide 15 L (22-30) mmol/L Anion Gap 21 mmol/L BUN 19 (9-20) mg/dL Creatinine 0.92 (0.66-1.25) mg/dL Est GFR (CKD-EPI)AfAm >90 (>60 ml/min/1.73 sqM) Est GFR (CKD-EPI)NonAf >90 (>60 ml/min/1.73 sqM) Glucose 440 H (74-99) mg/dL POC Glucose (mg/dL) 412 H (70-110) mg/dL POC Glu Hot Oiler ID Cipriano Lewis Calcium 9.2 (8.4-10.2) mg/dL Phosphorus 4.1 (2.5-4.5) mg/dL Magnesium 2.0 (1.6-2.3) mg/dL Total Bilirubin 0.6 (0.2-1.3) mg/dL AST 37 (17-59) U/L ALT 76 H (4-49) U/L Alkaline Phosphatase 142 H (38-126) U/L Total Protein 7.9 (6.3-8.2) g/dL Albumin 5.2 H (3.5-5.0) g/dL Urine Color Urine Appearance (Clear) Urine pH (5.0-8.0) Ur Specific Newcomb (1.001-1.035) Urine Protein (Negative) Urine Glucose (UA) (Negative) Urine Ketones (Negative) Urine Blood (Negative) Urine Nitrite (Negative) Urine Bilirubin (Negative) Urine Urobilinogen (<2.0) mg/dL Ur Leukocyte Esterase (Negative) Serum Alcohol 202 H* mg/dL Acetone, Qual Negative (Negative) 08/11/24 08/11/24 Range/Units 15:11 15:30 WBC (3.8-10.6) k/uL RBC (4.30-5.90) m/uL Hgb (13.0-17.5) gm/dL Hct (39.0-53.0) % MCV (80.0-100.0) fL MCH (25.0-35.0) pg MCHC (31.0-37.0) g/dL RDW (11.5-15.5) % Plt Count (150-450) k/uL MPV Neutrophils % % Lymphocytes % % Monocytes % % Eosinophils % % Basophils % % Neutrophils # (1.3-7.7) k/uL Lymphocytes # (1.0-4.8) k/uL Monocytes # (0-1.0) k/uL Eosinophils # (0-0.7) k/uL Basophils # (0-0.2) k/uL VBG pH 7.33 (7.31-7.41) VBG pCO2 37 (37-51) mmHg VBG HCO3 20 L (24-28) mmol/L Sodium (137-145) mmol/L Potassium (3.5-5.1) mmol/L Chloride (98-107) mmol/L Carbon Dioxide (22-30) mmol/L Anion Gap mmol/L BUN (9-20) mg/dL Creatinine (0.66-1.25) mg/dL Est GFR (CKD-EPI)AfAm (>60 ml/min/1.73 sqM) Est GFR (CKD-EPI)NonAf (>60 ml/min/1.73 sqM) Glucose (74-99) mg/dL POC Glucose (mg/dL) (70-110) mg/dL POC Glu Hot Oiler ID Calcium (8.4-10.2) mg/dL Phosphorus (2.5-4.5) mg/dL Magnesium (1.6-2.3) mg/dL Total Bilirubin (0.2-1.3) mg/dL AST (17-59) U/L ALT (4-49) U/L Alkaline Phosphatase (38-126) U/L Total Protein (6.3-8.2) g/dL Albumin (3.5-5.0) g/dL Urine Color Colorless Urine Appearance Clear (Clear) Urine pH 5.0 (5.0-8.0) Ur Specific Newcomb 1.015 (1.001-1.035) Urine Protein Negative (Negative) Urine Glucose (UA) 4+ H (Negative) Urine Ketones 1+ H (Negative) Urine Blood Negative (Negative) Urine Nitrite Negative (Negative) Urine Bilirubin Negative (Negative) Urine Urobilinogen <2.0 (<2.0) mg/dL Ur Leukocyte Esterase Negative (Negative) Serum Alcohol mg/dL Acetone, Qual (Negative) Disposition <Natasha Calvin - Last Filed: 08/15/24 09:11> Is patient prescribed a controlled substance at d/c from ED?: No Time of Disposition: 16:30 <Emilio Wynn - Last Filed: 08/17/24 15:56> Clinical Impression: Acute psychosis, Hyperglycemia, Weakness, Alcohol intoxication Disposition: ADMITTED IP TO THIS HOSP Condition: Fair
[2024-08-11 13:26] LABS: Glucose,Whole Blood 412 mg/dL (70-110)
[2024-08-11] MEDS: SODIUM CHLORIDE 0.9% 2,000 ML IV STA (15:22)
[2024-08-11 15:23] LABS: VBG PH 7.33 (7.31-7.41)
[2024-08-11 15:29] LABS: ALT 76 U/L (4-49); AST 37 U/L (17-59); African American GFR (CKD) >90 (>60 ml/min/1.73 sqM); Albumin 5.2 g/dL (3.5-5.0); Alkaline Phosphatase 142 U/L (38-126); Anion Gap 21 mmol/L; Blood Urea Nitrogen 19 mg/dL (9-20); Calcium 9.2 mg/dL (8.4-10.2); Carbon Dioxide 15 mmol/L (22-30); Chloride 103 mmol/L (98-107); Glucose 440 mg/dL (74-99); Non-African American GFR(CKD) >90 (>60 ml/min/1.73 sqM); Phosphorus 4.1 mg/dL (2.5-4.5); Potassium 4.8 mmol/L (3.5-5.1); Sodium 139 mmol/L (137-145); Total Bilirubin 0.6 mg/dL (0.2-1.3); Total Protein 7.9 g/dL (6.3-8.2)
[2024-08-11 15:34] LABS: Basophils % (A) 0 %; Eosinophils # (A) 0.1 k/uL (0-0.7); Eosinophils % (A) 1 %; HCT 40.7 % (39.0-53.0); HGB 13.5 gm/dL (13.0-17.5); Lymphocytes # (A) 2.1 k/uL (1.0-4.8); Lymphocytes % (A) 23 %; MCH 29.2 pg (25.0-35.0); MCHC 33.3 g/dL (31.0-37.0); MCV 87.8 fL (80.0-100.0); Mean Platelet Volume 6.9; Monocytes # (A) 0.4 k/uL (0-1.0); Monocytes % (A) 4 %; Neutrophils # (A) 6.6 k/uL (1.3-7.7); Neutrophils % (A) 71 %; Platelet Count 260 k/uL (150-450); RBC 4.63 m/uL (4.30-5.90); RDW 13.1 % (11.5-15.5); WBC 9.3 k/uL (3.8-10.6)
[2024-08-11] MEDS: LORazepam 2 MG/ML INJ IV STA (15:41)
[2024-08-11 15:46] LABS: Appearance,Urine Clear (Clear); Bilirubin,Urine Negative (Negative); Blood,Urine Negative (Negative); Color,Urine Colorless; Glucose,Urine (UA) 4+ (Negative); Ketones,Urine 1+ (Negative); Leukocyte Esterase,Urine Negative (Negative); Nitrite,Urine Negative (Negative); Protein,Urine Negative (Negative); Specific Gravity,Urine 1.015 (1.001-1.035); Urobilinogen,Urine <2.0 mg/dL (<2.0)
[2024-08-11 16:02] LABS: Alcohol 202 mg/dL
--- NOTE | 2024-08-11 16:17 | XR ---
EXAMINATION TYPE: XR lumbar spine 2 or 3V DATE OF EXAM: 08/11/2024 4:12 PM COMPARISON: None CLINICAL INDICATION: Male, 39 years old with history of fall; PHH pain TECHNIQUE: XR lumbar spine 2 or 3V - Frontal, lateral and coned in L5-S1 lateral views of the spine. FINDINGS: No evidence of any acute osseous pathology. No evidence of loss of vertebral body height i s seen. There is normal alignment of the lumbar vertebral bodies. Minimal disc space narrowing osteop hytes patient facet joint arthropathy. Suspected Limbus vertebrae of the anterior L5 vertebral body. IMPRESSION: 1. No acute fracture. 2. Mild multilevel disc degeneration. 3. Suspected L5 vertebral body limbus vertebrae. [facility], Workstation: [facility], 08/11/2024 4:15 PM
[2024-08-11] MEDS ORDERED: LORazepam 2 MG/ML INJ IV PRN ×3 (16:33)
[2024-08-11] MEDS ORDERED: NALOXONE 0.4 MG/ML 1 ML VIAL IV PRN (16:33)
[2024-08-11] MEDS ORDERED: LORazepam 0.5 MG TAB PO PRN (16:33)
[2024-08-11] MEDS ORDERED: LORazepam 1 MG TAB PO PRN ×4 (16:33)
[2024-08-11 17:16] LABS: Glucose,Whole Blood 406 mg/dL (70-110)
[2024-08-11] MEDS: INSULIN REGULAR 100 UNIT/ML VIAL (IM/SQ) SQ ONE (17:26)
[2024-08-11] MEDS ORDERED: DEXTROSE 50% SYRINGE 50 ML IVP PRN ×2 (19:42)
[2024-08-11 19:45] LABS: Glucose,Whole Blood 488 mg/dL (70-110)
[2024-08-11] MEDS: INSULIN REGULAR 100 UNIT/ML VIAL (IV) IV ONE (19:52)
[2024-08-11] MEDS: SODIUM CHLORIDE 0.9% 1,000 ML IV SCH (19:59)
[2024-08-11 22:21] LABS: Glucose,Whole Blood 254 mg/dL (70-110)
[2024-08-12] MEDS: MORPHINE SULFATE 4 MG/ML SYRINGE IV PRN (03:07)
[2024-08-12 07:59] LABS: Glucose,Whole Blood 401 mg/dL (70-110)
[2024-08-12] MEDS: INSULIN ASPART (NovoLOG) 100 UNIT/ML VIAL SQ SCH (08:17)
[2024-08-12 10:36] LABS: Basophils # (A) 0.03 X 10*3/uL (0.00-0.10); Basophils % (A) 0.5 %; Eosinophils # (A) 0.14 X 10*3/uL (0.04-0.35); Eosinophils % (A) 2.4 %; HCT 32.2 % (39.6-50.0); HGB 11.1 g/dL (13.0-17.0); Lymphocytes # (A) 1.94 X 10*3/uL (0.90-5.00); Lymphocytes % (A) 33.2 %; MCH 29.6 pg (27.0-32.0); MCHC 34.5 g/dL (32.0-37.0); MCV 85.9 FL (80.0-97.0); Mean Platelet Volume 9.9 FL (9.5-12.2); Monocytes # (A) 0.65 X 10*3/uL (0.20-1.00); Monocytes % (A) 11.1 %; NRBC Per 100 WBC 0 X 10*3/uL (0.00-0.01); Neutrophils # (A) 3.08 X 10*3/uL (1.80-7.70); Neutrophils % (A) 52.6 %; Platelet Count 187 X 10*3/uL (140-440); RBC 3.75 X 10*6/uL (4.40-5.60); WBC 5.85 X 10*3/uL (4.50-10.00)
[2024-08-12 10:53] LABS: ALT 59 U/L (10-49); AST 24 U/L (14-35); Albumin 3.8 g/dL (3.8-4.9); Albumin/Globulin Ratio 1.81 Ratio (1.60-3.17); Alkaline Phosphatase 99 U/L (41-126); BUN/Creat Ratio 20.86 Ratio (12.00-20.00); Blood Urea Nitrogen 14.6 mg/dL (9.0-27.0); Calcium 8.3 mg/dL (8.7-10.3); Carbon Dioxide 26.8 mmol/L (21.6-31.8); Chloride 104 mmol/L (96-109); Globulin 2.1 g/dL (1.6-3.3); Glucose 293 mg/dL (70-110); Magnesium 1.9 mg/dL (1.5-2.4); Phosphorus 3.2 mg/dL (2.4-5.1); Potassium 4.3 mmol/L (3.5-5.5); Sodium 139 mmol/L (135-145); Total Bilirubin 0.6 mg/dL (0.3-1.2); Total Protein 5.9 g/dL (6.2-8.2)
--- NOTE | 2024-08-12 11:18 | P.HPIM ---
History of Present Illness This is a pleasant 39 years old male who presents because of high sugar. Patient states that he has history of diabetes mellitus, he uses to use Tresiba insulin 30 units daily +5 units short acting insulin with meals plus sliding sc alfonzo. Patient states that he has been using his sliding scale hold his life. He states that he has been incarcerated in nursing home for 2.5 months for dariar and he was released last Saturday. On discharge his sugar was high because he was not getting his insulin as appropriate in nursing home. Patient said that he has no money to afford insulin. We switch his insulin to NovoLog 70: 30 and he agrees. I told him he might get it cheaper at [facility] and he agrees. Also patient states homelessness is any issue for him since he released from nursing home. [facility] and clinical social work therapist was consulted for him for discharge placement Other than that he complains from stuffy nose and some sore throat but he denies coughing shortness of breath or chest pain. He has some headache. He was complaining from back pain stating that he has a history of back fracture many years ago. X-ray done in the emergency room of the lumbar spine showing L5 vertebral body limbus suspected. However patient get up and go test is normal. Patient walking at baseline with no difficulty. Currently no back pain or nu mbness or weakness in the extremities. No perineal numbness. No loss of control or urine or bowel. No urinary complaints like dysuria or urgency. No vomiting diarrhea or abdominal pain. No dizziness weakness or numbness Patient is non-smoker and no illicit drugs. Once he released from nursing home he uses food stamps to buy 3 vanilla alcohol cans, he thinks it is liquor and he has been drinking it through Saturday and Saturday before he comes to the hospital On admission his alcohol level was high to 102. Acetone were negative. Patient was found to quit drinking and he agrees Currently patient is hemodynamically stable, he is afebrile He has unremarkable labs including CBC, BMP and liver enzymes. Urine analysis showing glucosuria. No signs of infection Glucose was elevated more than 400 on admission EKG showing sinus tachycardia [address]-T changes When I ask the patient if he has any depression signs symptoms he declines. He declines suicidal or homicidal ideation. He declines hallucination no other visual or auditory to me. However it looks like psychiatric team are consulted from emergency room Bedside nurse also confirmed to me patient was walking in the hallway find like normal Review of Systems Review of systems CONSTITUTIONAL: No fever, no malaise, no fatigue. HEENT: No recent visual problems or hearing problems. Denied any sore throat. CARDIOVASCULAR: No orthopnea, PND, no palpitations, no syncope. PULMONARY: No shortness of breath, no cough, no hemoptysis. GASTROINTESTINAL: No diarrhea, no nausea, no vomiting, no abdominal pain. Normoactive bowel sounds. NEUROLOGICAL: No headaches, no weakness, no numbness. HEMATOLOGICAL: Denies any bleeding or petechiae. GENITOURINARY: Denies any burning micturition, frequency, or urgency. MUSCULOSKELETAL/RHEUMATOLOGICAL: Denies any joint pain, swelling, or any muscle pain. ENDOCRINE: Denies any polyuria or polydipsia. Past Medical History Past Medical History: Diabetes Mellitus History of Any Multi-Drug Resistant Organisms: None Reported Past Surgical History: No Surgical Hx Reported Past Psychological History: PTSD Smoking Status: Current every day smoker Past Alcohol Use History: Heavy, Occasional Past Drug Use History: None Reported - Past Family History family Additional Family Medical History / Comment(s): denies CAD or DM Medications and Allergies Home Medications Medication Instructions Recorded Confirmed Type No Known Home Medications 08/11/24 08/11/24 History Allergies Allergy/AdvReac Type Severity Reaction Status Date / Time No Known Allergies Allergy Verified 08/11/24 20:43 Physical Exam Vitals: Vital Signs Temp Pulse Pulse Resp BP BP Pulse Ox 08/12/24 08:23 97.3 F L 96 16 133/80 97 08/12/24 06:21 98.9 F 93 18 125/79 99 08/12/24 03:42 104 H 16 124/72 95 08/11/24 13:24 97.7 F 107 H 20 130/77 99 GENERAL: The patient is alert and oriented x3, not in any acute distress. Well developed, well nourished. HEENT: Pupils are round and equally reacting to light. EOMI. No scleral icterus. No conjunctival pallor. Normocephalic, atraumatic. No pharyngeal erythema. No thyromegaly. CARDIOVASCULAR: S1 and S2 present. No murmurs, rubs, or gallops. PULMONARY: Chest is clear to auscultation, no wheezing , no crackles. ABDOMEN: Soft, nontender, nondistended, normoactive bowel sounds. No palpable organomegaly. MUSCULOSKELETAL: No joint swelling or deformity. EXTREMITIES: No cyanosis, clubbing, or pedal edema. NEUROLOGICAL: Gross neurological examination did not reveal any focal deficits. SKIN: No rashes. no petechiae. -Get up and go test is normal Results CBC & Chem 7: 08/12/24 06:27 08/12/24 06:27 Labs: Abnormal Lab Results - Last 24 Hours (Table) 08/11/24 08/11/24 08/11/24 Range/Units 13:25 15:11 15:11 RBC (4.40-5.60) X 10*6/uL Hgb (13.0-17.0) g/dL Hct (39.6-50.0) % VBG HCO3 20 L (24-28) mmol/L Carbon Dioxide 15 L (22-30) mmol/L BUN/Creatinine Ratio (12.00-20.00) Ratio Glucose 440 H (74-99) mg/dL POC Glucose (mg/dL) 412 H (70-110) mg/dL Hemoglobin A1c (<=6.0) % Calcium (8.7-10.3) mg/dL ALT 76 H (4-49) U/L Alkaline Phosphatase 142 H (38-126) U/L Total Protein (6.2-8.2) g/dL Albumin 5.2 H (3.5-5.0) g/dL Urine Glucose (UA) (Negative) Urine Ketones (Negative) Serum Alcohol 202 H* mg/dL 08/11/24 08/11/24 08/11/24 Range/Units 15:30 17:15 19:39 RBC (4.40-5.60) X 10*6/uL Hgb (13.0-17.0) g/dL Hct (39.6-50.0) % VBG HCO3 (24-28) mmol/L Carbon Dioxide (22-30) mmol/L BUN/Creatinine Ratio (12.00-20.00) Ratio Glucose (74-99) mg/dL POC Glucose (mg/dL) 406 H 488 H (70-110) mg/dL Hemoglobin A1c (<=6.0) % Calcium (8.7-10.3) mg/dL ALT (4-49) U/L Alkaline Phosphatase (38-126) U/L Total Protein (6.2-8.2) g/dL Albumin (3.5-5.0) g/dL Urine Glucose (UA) 4+ H (Negative) Urine Ketones 1+ H (Negative) Serum Alcohol mg/dL 08/11/24 08/12/24 08/12/24 Range/Units 22:19 06:27 06:27 RBC 3.75 L (4.40-5.60) X 10*6/uL Hgb 11.1 L (13.0-17.0) g/dL Hct 32.2 L (39.6-50.0) % VBG HCO3 (24-28) mmol/L Carbon Dioxide (22-30) mmol/L BUN/Creatinine Ratio (12.00-20.00) Ratio Glucose (74-99) mg/dL POC Glucose (mg/dL) 254 H (70-110) mg/dL Hemoglobin A1c 8.8 H (<=6.0) % Calcium (8.7-10.3) mg/dL ALT (4-49) U/L Alkaline Phosphatase (38-126) U/L Total Protein (6.2-8.2) g/dL Albumin (3.5-5.0) g/dL Urine Glucose (UA) (Negative) Urine Ketones (Negative) Serum Alcohol mg/dL 08/12/24 08/12/24 Range/Units 06:27 07:51 RBC (4.40-5.60) X 10*6/uL Hgb (13.0-17.0) g/dL Hct (39.6-50.0) % VBG HCO3 (24-28) mmol/L Carbon Dioxide (22-30) mmol/L BUN/Creatinine Ratio 20.86 H (12.00-20.00) Ratio Glucose 293 H (74-99) mg/dL POC Glucose (mg/dL) 401 H (70-110) mg/dL Hemoglobin A1c (<=6.0) % Calcium 8.3 L (8.7-10.3) mg/dL ALT 59 H (4-49) U/L Alkaline Phosphatase (38-126) U/L Total Protein 5.9 L (6.2-8.2) g/dL Albumin (3.5-5.0) g/dL Urine Glucose (UA) (Negative) Urine Ketones (Negative) Serum Alcohol mg/dL Assessment and Plan Assessment: Alcohol use disorder, risk of alcohol withdrawal is low as he has been drinking only for 2 days in the last 2 months Diabetes mellitus with hyperglycemia Nonadherence to medication including his insulin because of lack of resources Homelessness, [facility] to [facility] upon discharge to which he agrees L5 vertebral body limbus History of back injury Plan: Start the patient on insulin 70: 30, patient informed he can get it for lower joel in [facility] and he agrees Continue with insulin sliding scale We recommend patient [facility] upon discharge and he agrees soda worker consult for resources Continue with IV hydration encourage eating Patient is walking fine. Regarding his back issue it looks currently asymptomatic and is a chronic problem. Patient might benefit from outpatient follow-up Psychiatric team will evaluate the patient Further recommendation based on the clinical course No need for physical therapy evaluation as patient is walking fine DVT prophylaxis: no need for any coagulant, patient is low risk. Continue with mechanical GI prophylaxis: Possible discharge in 24 to 48 hours was in control his sugar and his complaints solved
[2024-08-12 12:11] LABS: Glucose,Whole Blood 193 mg/dL (70-110)
[2024-08-12] MEDS: ACETAMINOPHEN TAB 325 MG TAB PO PRN (13:04)
[2024-08-12] MEDS: INSULN ASP PRT/INSULIN ASPART 100 UNIT/ML 10 ML VIAL SQ SCH ×2 (13:05→21:21)
--- NOTE | 2024-08-12 14:19 | P.CN ---
Psychiatric Consult - . Consult date: 08/12/24 Consult:: 08/12/24 14:15 IDENTIFYING DATA: This patient is a 39-year-old male, homeless REASON FOR REFERRAL: Psychiatry was consulted for psychosis HISTORY OF PRESENT ILLNESS: The patient presented to the hospital due to abnormal labs. Patient has a history of diabetes however was reportedly nonadherent with insulin with blood sugars elevated. Serum alcohol was elevated at 202 and patient was placed on CIWA. Patient seen and evaluated in his room. He denied any past psychiatric history and vehemently denied any psychosis today or any past history of hallucinations. He states that he has pain related to diabetes and that he has been drinking excessively to "numb the pain". He states he had no insulin and he is homeless and that this is what spiked his blood sugars. At this time patient denies any suicidal or homical ideations, intent or plan. Patient denies any auditory, visual hallucinations and denies any paranoia or delusions. Patients admits to using "excessive amounts of alcohol". He declined help with substance use today. PAST PSYCHIATRIC HISTORY: Patient denies any past psych history. Patient denies being on any psychiatric medications. Patient denies any previous psychiatric hospitalizations. Patient denies any psychiatric outpatient follow-up. Patient denies any history of suicide attempts in the past. PAST MEDICAL HISTORY: Diabetes mellitus. ALLERGIES: as per EMR. CHEMICAL DEPENDENCY HISTORY: as per HPI. FAMILY PSYCHIATRIC/SUBSTANCE USE HISTORY: Denies SOCIAL HISTORY: Patient currently homeless. He completed school up to the ninth grade. He is single. MENTAL STATUS EXAM: General Appearance: Patient appears to be stated age is alert, pleasant, and cooperative. Patient appears to have fair hygiene and grooming wearing hospital gown with fair eye contact. Behavior: Patient is calmly lying in bed without any agitated behavior. He appeared to be in pain Speech: Patient's speech is fluent and nonpressured. Mood/Affect: Patient reports their mood is "in pain", affect is congruent Suicidality/Homicidality: Patient denies having any suicidal or homicidal ideation intent or plan. Perceptions: Patient denies any visual hallucinations and denies any auditory hallucinations Though content/process: There is no evidence of any delusional thought content and thought process is linear and logical. Memory and concentration: AOX3, grossly intact for the purposes of this session. Can spell "WORLD" backwards Judgment and insight: Poor IMPRESSIONS: Alcohol use disorder, severe in withdrawal PLAN: -At this time patient DOES NOT meet criteria for inpatient psychiatric admission. -Would recommend the following medication changes/additions: Patient declined any help with psychotropic medications for substance use -WA protocol with PRN Ativan for alcohol withdrawal. Continue to monitor vital signs. -Roll Dough Divider spoke with patient about substance abuse and the harmful effects on medical and mental health, patient verbally understood and agreed. -turn down worker to provide patient substance use treatment resources including AA/NA meetings in the community. -Communicated plan to patient's nurse -Psychiatry will sign off at this time -Please contact with any questions.
[2024-08-12 16:42] LABS: Glucose,Whole Blood 215 mg/dL (70-110)
[2024-08-12] MEDS: IBUPROFEN 400 MG TAB PO PRN (17:13)
[2024-08-12 20:44] LABS: Glucose,Whole Blood 101 mg/dL (70-110)
[2024-08-13 03:39] VITALS: TEMP 98.2
[2024-08-13 05:58] LABS: Glucose,Whole Blood 421 mg/dL (70-110)
[2024-08-13 08:52] VITALS: BP 136/82; PULSE 94; RESP 15
[2024-08-13 11:26] LABS: Glucose,Whole Blood 79 mg/dL (70-110)
[2024-08-13] MEDS: hydrOXYzine HCL 25 MG TAB PO ONE (11:47)
[2024-08-13 12:21] LABS: Glucose,Whole Blood 205 mg/dL (70-110)
[2024-08-13] MEDS ORDERED: INSULN ASP PRT/INSULIN ASPART 100 UNIT/ML 10 ML VIAL SQ SCH (17:30)
--- NOTE | 2024-08-13 23:53 | P.DS ---
Providers Date of admission: 08/11/24 16:34 Attending physician: Irwin Kulkarni Consults: 08/11/24 16:33 Consult Physician Routine Consulting Provider: Bi Brumfield Consult Reason/Comments: psychosis Do you want consulting provider notified?: Yes Primary care physician: Stated None Hospital Course: Diagnoses: Alcohol use disorder, risk of alcohol withdrawal is low as he has been drinking only for 2 days in the last 2 months Diabetes mellitus with hyperglycemia Nonadherence to medication including his insulin because of lack of resources Homelessness, he will need to go to skilled nursing upon discharge to which he agrees L5 vertebral body limbus History of back injury Hospital course: This is a pleasant 39 years old male who presents because of high sugar. Patient states that he has history of diabetes mellitus, he uses to use Tresiba insulin 30 units daily +5 units short acting insulin with meals plus sliding scale. Patient states that he has been using his sliding scale hold his life. He states that [facility]5 [facility] for misdemeanor and he was released last Saturday. On discharge his sugar was high because he was not getting his insulin as appropriate [facility]. Patient said that he has no money to afford insulin. We switch his insulin to NovoLog 70: 30 and he agrees. I told him he might get it cheaper at [facility] and he agrees. Also patient states homelessness is any issue for him since he released from [facility]. He agrees to go to skilled nursing and criminal justice social worker was consulted for him for discharge placement Patient was admitted with multiple medical problems, like alcohol use disorder, patient is to check blood sugars four times daily before each meal and at bedtime. If blood sugar is less than 70 or more than 350 please call 911 or report to the nearest emergency department. Please keep a log of all blood sugars for the primary care provider follow up and keep scheduled appointment. continue current diabetic diet repeat labs in 5 days, homeless. Patient was counseled to quit drinking alcohol and he agrees Patient was provided with insulin 70: 30 at a rate of 20 minutes in the morning and 10 units at night. His sugar controlled. Prescription provided for him as well as insulin sliding scale and glucometer as per my discussion with the case resource manager at bedside. Also patient was given extensive extension both verbal and written in his discharge papers about how to deal with the insulin injections. Patient was evaluated by psychiatrist and patient does not need inpatient criteria for psych health unit admission. Patient was seen walking in the hallway with no difficulty After rounding back of age from the bedside nurse Pinky that patient was standing and the bench desk at the nurses station asking to be discharged otherwise he will leave AMA. Prescription is provided for him. Also I discussed the case with the pharmacy to help him with his prescription. Patient denies any other new complaint Also importance of adherence to therapy and medication is explained to the patient extensively and he agrees Problems and management plan were discussed with the patient and he verbalized understanding and acceptance Patient was found stable and can be discharged home in guarded prognosis however he needs follow-up as an outpatient. Patient was instructed to follow up with PCP within one week and patient agrees Patient was instructed to follow[facility]up [facility] as he told us he does not have insurance Patient also was instructed to follow-up with agricultural chemist Dr. Mccarty in 1 week washtub worker helper also provided list of shelters for him to which he agrees Physical exam Gen: patient is a AAOx3, no distress CVS: S1-S2, RRR, no murmur Lungs: B/L CTA, no wheezing Abdomen: soft, no distention, no tenderness, positive bowel sounds Extremity: no leg edema or induration Time spent more than 35 minutes Patient Condition at Discharge: Fair Plan - Discharge Summary Discharge Rx Participant: Yes New Discharge Prescriptions: New INSULIN ASPART (NovoLOG) [NovoLOG (formulary)] 0 unit SQ AC-TID 30 Days #10 ml Acetaminophen Tab [Tylenol] 650 mg PO Q6HR PRN tab PRN Reason: Fever And/ Or Pain Ibuprofen [Motrin] 400 mg PO Q8HR PRN 2 Days tab PRN Reason: Pain Insuln Asp Prt/Insulin Aspart [NovoLOG MIX 70-30 VIAL] 20 unit SQ AC-BRKFST 30 Days #10 ml Insuln Asp Prt/Insulin Aspart [NovoLOG MIX 70-30 VIAL] 10 unit SQ AC-SUPPER 30 Days #10 ml Discharge Medication List Acetaminophen Tab [Tylenol] 650 mg PO Q6HR PRN tab 08/13/24 [Rx] INSULIN ASPART (NovoLOG) [NovoLOG (formulary)] 0 unit SQ AC-TID 30 Days #10 ml 08/13/24 [Rx] Ibuprofen [Motrin] 400 mg PO Q8HR PRN 2 Days tab 08/13/24 [Rx] Insuln Asp Prt/Insulin Aspart [NovoLOG MIX 70-30 VIAL] 10 unit SQ AC-SUPPER 30 Days #10 ml 08/13/24 [Rx] Insuln Asp Prt/Insulin Aspart [NovoLOG MIX 70-30 VIAL] 20 unit SQ AC-BRKFST 30 Days #10 ml 08/13/24 [Rx] Follow up Appointment(s)/Referral(s): None,Stated [Primary Care Provider] - 1-2 days [facility] John espana [NON-STAFF] - 1 Week Kandy Mccarty [STAFF PHYSICIAN] - 1 Week (Diabetes DrNiki) Zelalem Soriano MD [STAFF PHYSICIAN] - 1 Week (Orthopedic doctor) Patient Instructions/Handouts: Insulin Scale A (MPH) Activity/Diet/Wound Care/Special Instructions: Low carbohydrate 1800 kcal/day Activity is restricted till you see your doctor We recommend to check your glucose 4 times a day, before each meal and at bedtime. Keep the results in a log book and bring it to your doctor on your appointment date. If your glucose less than 70 or more than 400-500 then call 911 and come to emergency room Discharge Disposition: HOME SELF-CARE
[2024-08-14] MEDS ORDERED: INSULN ASP PRT/INSULIN ASPART 100 UNIT/ML 10 ML VIAL SQ SCH ×2 (07:30)
== END 2024-08-13 13:13 | disposition home or self-care (01) ==
LOC: EC 13:13 → 6NMEDSUR 16:34 → 1SOBS 08-12 07:36
PROVIDERS: ADMIT Hospitalist; ATTEND Hospitalist
DX: E11.65 Type 2 diabetes mellitus with hyperglycemia (principal); F10.229 Alcohol dependence with intoxication, unspecified; F10.230 Alcohol dependence with withdrawal, uncomplicated; F23 Brief psychotic disorder; R53.1 Weakness; F17.200 Nicotine dependence, unspecified, uncomplicated; Y90.7 Blood alcohol level of 200-239 mg/100 ml; Z59.00 Homelessness unspecified; Z87.828 Personal history of other (healed) physical injury and trauma; Z91.148 Patient's other noncompliance with medication regimen for other reason; Z79.4 Long term (current) use of insulin
CPT/HCPCS: 96376; 96374; 96375; 99285; 36415; 93005; 97161; 80053 ×2; 82803; 82009; 83735 ×2; 84100 ×2; 85025 ×2; 81003; 80320; 83036; 72100; G0378 ×4; J2270